=== PATIENT | male | born 1955 | race Caucasian/White ===

== ENCOUNTER 2019-02-13 12:24 | Inpatient (IN) | payer MEDICAID ==
[~2019-02-13] VITALS: Ht 170.2 cm; Wt 92.5 kg
[2019-02-13 12:41] VITALS: BP 132/76
--- NOTE | 2019-02-13 12:52 | NUR ---
64/M BIB SON IN LAW WITH C/O RASH TO LEFT FOREARM X 3 DAYS, FEVER AND COUGH X4 DAYS, STATED PROBLEM WITH SLEEPING. DENIES N/V/D. PATIENT STATES PAIN OF 0/10 AT THIS TIME. PATIENT POSITIONED FOR COMFORT; HOB ELEVATED; BEDRAILS UP X2; BED DOWN. ER MD MADE AWARE OF PT STATUS.
--- NOTE | 2019-02-13 12:52 | NUR ---
PT AMB TO BED1
[2019-02-13] MEDS ORDERED: hydrOXYzine HCL 25 MG TAB PO ONE (13:25)
[2019-02-13] MEDS ORDERED: diphenhydrAMINE 50 MG/ML VIAL IM ONE (13:25)
[2019-02-13] MEDS ORDERED: ALBUTEROL SULFATE/IPRATROPIU 3 ML SOL IH ONE (13:25)
[2019-02-13] MEDS ORDERED: DEXAMETHASONE 10 MG/ML VIAL IM ONE (13:25)
--- NOTE | 2019-02-13 13:25 | NUR ---
Zunilda espinoza in [facility] - 02/13/19 at 1505 by MED1 RT AT BEDSIDE FOR BREATHING TREATMENT.
--- NOTE | 2019-02-13 13:59 | NUR ---
RT AT BEDSIDE FOR BREATHING TREATMENT.
--- NOTE | 2019-02-13 16:25 | NUR ---
CALLED X RAY FOR X RAY RESULT.
[2019-02-13 17:16] LABS: BASOPHILS % (AUTO) 1.1 % (0.0-2.0); EOSINOPHILS % (AUTO) 0.8 % (0.0-4.0); HEMATOCRIT 41.4 % (36-52); HEMOGLOBIN 13.9 g/dL (12.0-18.0); LYMPHOCYTES # (AUTO) 0.5 K/uL (2.0-11.5); LYMPHOCYTES % (AUTO) 12.9 % (20.5-51.1); MEAN CORPUSCULAR HEMOGLOBIN 31 pg (27-31); MEAN CORPUSCULAR HGB CONC 34 g/dL (33-37); MEAN CORPUSCULAR VOLUME 92.3 fL (80-94); MONOCYTES # (AUTO) 0.1 K/uL (0.8-1.0); MONOCYTES % (AUTO) 2.9 % (1.7-9.3); NEUTROPHILS % (AUTO) 82.3 % (42.2-75.2); PLATELET COUNT (AUTO) 296 K/uL (140-450); RED BLOOD CELL COUNT(AUTO) 4.48 MIL/uL (4.20-6.10); RED CELL DISTRIBUTION WIDTH 13.9 % (11.6-13.7); WHITE BLOOD COUNT (AUTO) 3.6 K/uL (4.8-10.8)
[2019-02-13 17:23] LABS: PROTHROMBIN TIME 9.1 secs (10.8-13.4)
--- NOTE | 2019-02-13 17:24 | NUR ---
PT TAKEN TO CT
[2019-02-13 17:29] LABS: ALBUMIN 3.2 g/dL (3.4-5.0); CREATININE 0.9 mg/dL (0.7-1.3); POTASSIUM 4.2 mmol/L (3.5-5.1)
[2019-02-13 17:41] LABS: ANION GAP 13.1 (8-16); CARBON DIOXIDE 24.1 mmol/L (21-32); MAGNESIUM 2.1 mg/dL (1.8-2.4); TOTAL BILIRUBIN 0.3 mg/dL (0.0-1.0)
[2019-02-13 17:42] LABS: URIC ACID 5.6 mg/dL (2.6-7.2)
[2019-02-13] MEDS ORDERED: MORPHINE SULFATE 4 MG/ML SYR IVP PRN (17:45)
[2019-02-13] MEDS ORDERED: ACETAMINOPHEN 325 MG TAB PO PRN (17:45)
[2019-02-13] MEDS ORDERED: DOCUSATE SODIUM 100 MG GELCAP PO PRN (17:45)
[2019-02-13] MEDS ORDERED: LORazepam 2 MG/ML VIAL IM/IVP PRN (17:45)
[2019-02-13] MEDS ORDERED: HYDROcodone/APAP 5/325 MG 1 TAB TAB PO PRN (17:45)
[2019-02-13] MEDS ORDERED: ONDANSETRON 4 MG/2 ML VIAL IM/IVP PRN (17:45)
[2019-02-13] MEDS ORDERED: ZOLPIDEM 5 MG TAB PO PRN (17:45)
[2019-02-13] MEDS ORDERED: LEVOFLOXACIN 500 MG/D5W PREMIX 100 ML IV ONE (18:15)
--- NOTE | 2019-02-13 18:24 | NUR ---
Dr. Lester and Dr. Ruiz evaluating patient at bedside.
[2019-02-13 18:30] LABS: FREE T4 (FREE THYROXINE) 1.2 ng/dL (0.76-1.46); PHOSPHORUS 1.7 mg/dL (2.5-4.9); THYROID STIMULATING HORMONE 1.16 uIU/mL (0.34-3.74)
--- NOTE | 2019-02-13 18:47 | NUR ---
Patient will be admitted to care of DR CHISHOLM. Admited to MS. Will go to room 117A. Belongings list completed. Report to SIMON MACKENZIE.
--- NOTE | 2019-02-13 18:47 | NUR ---
RECEIVED BEDSIDE REPORT FROM ER NURSE. PT STABLE, AWAKE, AND ALERT. FAMILY AT THE BEDSIDE. NO SIGNS OF DISTRESS NOTED. NO REDNESS, SWELLING, OR INFLAMMATION NOTED ON IV SITE. CALL NEFF WITHIN REACH. BED ALARM ON, BED IN LOWEST POSITION. SAFETY MEASURES IN PLACE. PLAN OF CARE REVIEWED.
--- NOTE | 2019-02-13 19:13 | NUR ---
Zunilda espinoza in [facility] - 02/13/19 at 1914 by [facility] Patient will be admitted to care of DR CHISHOLM. Admited to MS. Will go to room 117A. Belongings list completed. Report to SIMON MACKENZIE.
--- NOTE | 2019-02-13 19:20 | NUR ---
ENDORSED PT TO RN CAITLYN FOR CONTINUITY OF CARE. PT STABLE.
--- NOTE | 2019-02-13 19:30 | NUR ---
RECEIVED REPORT FROM DAY SHIFT NURSE FOR CONTINUITY OF CARE. PATIENT IS AWAKE, ALERT, AND COOPERATIVE. PATIENT SPEAK [place], OBTAINED PMH INFORMATION FROM THE FAMILY. RESPIRATION EVEN UNLABORED ON ROOM AIR. NO DISTRESS NOTED. SKIN IS WARM AND DRY. RASH ON THE LEFT HAND NOTED. IV PATENT AND INTACT. LUNGS SOUND CLEAR ON AUSCULTATION. BOWEL SOUNDS PRESENT IN ALL 4 QUADRANTS. LAST BM 02/13/19. MRSA SCREEN DONE. ALL SAFETY MEASURES ARE IN PLACE. PLAN OF CARE WAS DISCUSSED WITH THE PATIENT AND FAMILY. ORIENT PATIENT TO THE ROOM, STAFF, AND CALL LIGHT. BED IS AT LOW POSITION. CALL LIGHT WITHIN REACH AND VERBALIZES ITS USE. WILL CONTINUE TO MONITOR
[2019-02-13] MEDS: NACL 0.9% 1,000 ML IV SCH (19:43)
[2019-02-13 20:00] VITALS: BP 155/90
--- NOTE | 2019-02-13 20:00 | NUR ---
ALL SCHEDULE MEDS WERE GIVEN AND TOLERATED THEM WELL. NO DISTRESS NOTED. WILL CONTINUE TO MONITOR.
--- NOTE | 2019-02-13 21:15 | NUR ---
CHECKED PATIENT. PATIENT LYING IN BED RESPIRATION EVEN UNLABORED ON ROOM AIR. FAMILY AT BEDSIDE. WILL CONTINUE TO MONITOR.
[2019-02-13] MEDS ORDERED: ALBUTEROL SULFATE/IPRATROPIU 3 ML SOL IH PRN (22:10)
[2019-02-13] MEDS ORDERED: guaiFENesin DM 200/20 MG-10 ML 10 ML UDC PO ONE (22:15)
[2019-02-13] MEDS ORDERED: guaiFENesin DM 200/20 MG-10 ML 10 ML UDC PO PRN (22:15)
[2019-02-13] MEDS ORDERED: HYDROCORTISONE 1% CRM 30 GM TUBE TP PRN (22:20)
--- NOTE | 2019-02-13 22:20 | NUR ---
CHECKED PATIENT. PATIENT LYING IN BED WATCHING TV RESPIRATION EVEN UNLABORED ON ROOM AIR. NO DISTRESS NOTED. FAMILY AT BEDSIDE. WILL CONTINUE TO MONITOR.
--- NOTE | 2019-02-13 22:37 | NUR ---
UNABLE TO OBTAIN SPUTUM SAMPLE AT THIS TIME
--- NOTE | 2019-02-13 23:00 | NUR ---
PATIENT COMPLAINED OF DRY COUGH. PRN COUGH MED GIVEN PER ORDER. WILL CONTINUE TO MONITOR.
[2019-02-13] MEDS ORDERED: SODIUM PHOS / POTASSIUM PHOS 1 PKT PDR PO SCH (23:30)
[2019-02-14] VITALS: BP 136/79
--- NOTE | 2019-02-14 | NUR ---
VITALS WERE TAKEN. PATIENT CONDITION STABLE. NO DISTRESS NOTED. WILL CONTINUE TO MONITOR
--- NOTE | 2019-02-14 02:00 | NUR ---
CHECKED PATIENT. PATIENT SLEEPING RESPIRATION EVEN UNLABORED ON ROOM AIR. NO DISTRESS NOTED WILL CONTINUE TO MONITOR.
--- NOTE | 2019-02-14 03:00 | NUR ---
CHECKED PATIENT. PATIENT SLEEPING RESPIRATION EVEN UNLABORED ON ROOM AIR. NO DISTRESS NOTED WILL CONTINUE TO MONITOR.
[2019-02-14] MEDS ORDERED: PIPERACILLIN/TAZOBACTAM 3.375 GM VIAL IV ONE (04:19)
[2019-02-14] MEDS: PIPER/TAZO 3.375GM/D5W PREMIX 50 ML IV SCH ×2 (04:27→12:31)
--- NOTE | 2019-02-14 05:00 | NUR ---
ANTIBIOTIC MED GIVEN PER ODER. NO ASE NOTED. WILL CONTINUE TO MONITOR.
[2019-02-14] MEDS: NACL 0.9% 1,000 ML IV SCH ×2 (05:23→16:08)
[2019-02-14] MEDS: SODIUM PHOS / POTASSIUM PHOS 1 PKT PDR PO SCH ×3 (06:45→16:08)
--- NOTE | 2019-02-14 07:25 | NUR ---
ENDORSED PATIENT TO DAY SHIFT NURSE. PATIENT CONDITION STABLE.
--- NOTE | 2019-02-14 07:30 | NUR ---
RECEIVED PT AAOX4. NO SOB NOTED. NO C/O PAIN AT THIS TIME. IV TO RT HAND PATENT AND INTACT. CHEST DIMINISHED AIR ENTRY TO THE BASES. ABDOMEN SOFT, BOWEL SOUNDS PRESENT. INSTRUCTED PT TO CALL FOR ASSISTANCE, CALL LIGHT WITHIN REACH, VERBALIZED UNDERSTANDING. FAMILY AT THE BEDSIDE.
[2019-02-14 08:00] VITALS: BP_SYST 132; BP_SYST 145; BP_DIAS 73; BP_DIAS 81
[2019-02-14 08:46] LABS: PHOSPHORUS 3.5 mg/dL (2.5-4.9)
[2019-02-14 08:50] LABS: ANION GAP 15.4 (8-16); CARBON DIOXIDE 23.2 mmol/L (21-32); CREATININE 0.8 mg/dL (0.7-1.3); POTASSIUM 4.6 mmol/L (3.5-5.1)
[2019-02-14 08:59] LABS: BASOPHILS % (AUTO) 0.5 % (0.0-2.0); HEMATOCRIT 38.8 % (36-52); LYMPHOCYTES # (AUTO) 0.8 K/uL (2.0-11.5); LYMPHOCYTES % (AUTO) 9.8 % (20.5-51.1); MEAN CORPUSCULAR HEMOGLOBIN 31 pg (27-31); MEAN CORPUSCULAR HGB CONC 34 g/dL (33-37); MEAN CORPUSCULAR VOLUME 92.4 fL (80-94); MONOCYTES # (AUTO) 0.2 K/uL (0.8-1.0); MONOCYTES % (AUTO) 2.7 % (1.7-9.3); NEUTROPHILS # (AUTO) 7.2 K/uL (1.8-7.7); PLATELET COUNT (AUTO) 309 K/uL (140-450); RED CELL DISTRIBUTION WIDTH 13.8 % (11.6-13.7); WHITE BLOOD COUNT (AUTO) 8.2 K/uL (4.8-10.8)
--- NOTE | 2019-02-14 11:39 | NUR ---
LOC AWAKE AND ALERT SON IN LAW AND MOTHER IN LAW AT BEDSIDE EDUCATION PROVIDED TO PATIENT AND FAMILY WITH ACKNOWLEDGEMENT ON INCENTIVE SPIROMETRY AND SPUTUM CULTURE OBTAINMENT TOLERATED INCENTIVE SPIROMETRY THERAPY WELL WITHOUT INCIDENT ENCOURAGED PATIENT AND FAMILY WITH ACKNOWLEDGEMENT FOR PATIENT TO USE INCENTIVE SPIROMETRY EVERY 1-2 HOURS WHILE AWAKE SPUTUM CULTURE SPECIMEN CUP PLACED ON PATIENT TABLE ADVISED PATIENT AND FAMILY MEMBERS THAT WHEN PATIENT SPONTANEOUSLY COUGHS AND IS ABLE TO PRODUCE A SAMPLE TO ADVISE THE RN AND/OR RED LEADER
--- NOTE | 2019-02-14 11:53 | NUR ---
SPUTUM SPECIMEN COLLECTED (EXPECTORATED BY PT) AND SENT TO LAB BY CHRISTINE(RT) FOR SPUTUM CULTURE AND AFB#1.
[2019-02-14] MEDS: LACTOBACILLUS RHAMNOSUS GG 1 EACH CAP PO SCH (12:29)
--- NOTE | 2019-02-14 14:05 | NUR ---
PT AWAKE, TALKING TO FAMILY AT THE BEDSIDE. NO SOB NOTED. NO COMPLAINTS MADE.
[2019-02-14 16:00] VITALS: BP 132/73
--- NOTE | 2019-02-14 19:00 | NUR ---
PT AWAKE, WATCHING TV. NO SOB NOTED. NO SIGNS OF PAIN. SON AT THE BEDSIDE. WILL ENDORSE TO NEXT SHIFT NURSE FOR CONTINUITY OF CARE.
--- NOTE | 2019-02-14 19:10 | NUR ---
RECEIVED PT ON BED, AAOX4, [place] SPEAKING BUT SON AT BEDSIDE ACT INSULATION MECHANIC, NO SOB NOTED AND DENIES PAIN, OCCASIONAL DRY COUGH NOTED, AWARE TO COLLECT SPUTUM SPECIMEN FOR TEST, CONTAINER AT BEDSIDE, MAINTAINED ON AIRBORNE PRECAUTION TO R/O TB, CALL LIGHT WITHIN REACH.
--- NOTE | 2019-02-14 20:27 | NUR ---
ATTEMPTED SPUTUM INDUCTION. PT UNABLE TO PRODUCE. GAVE HHN TX WITH NS. PT STILL UNABLE TO PRODUCE. CUP LEFT WITH PT, PT ADVISED TO KEEP TRYING AND TO CALL IF HE PRODUCES ANYTHING IN THE MEANTIME. RN NOTIFIED.
[2019-02-14] MEDS ORDERED: AZITHROMYCIN 500 MG INJ VIAL IV ONE (20:57)
[2019-02-14] MEDS: OSELTAMIVIR PHOSPHATE 75 MG CAP PO SCH (20:58)
[2019-02-14] MEDS: AZITHROMYCIN 500 MG in DEXTROSE 5% 250 ML IV SCH (20:58)
[2019-02-14] MEDS: ATORVASTATIN 20 MG TAB PO SCH (20:58)
--- NOTE | 2019-02-14 21:20 | NUR ---
PT AWAKE, NO SIGNS OF DISTRESS, DUE MEDS ADMINISTERED, FIRST DOSE OF ZITHROMAX IVPB STARTED, MONITORED CLOSELY FOR REACTION, INFLUENZA SWAB DONE AND SENT TO LAB, ALL NEEDS ATTENDED.
[2019-02-14] MEDS ORDERED: cefTRIAXone 1,000 MG VIAL ONE (22:05)
--- NOTE | 2019-02-14 23:40 | NUR ---
PT SLEEPING, EASILY AROUSABLE, VITAL SIGNS STABLE, NO SOB NOTED, IVF INFUSING WELL, PT STILL UNABLE TO PRODUCE SPUTUM, ENCOURAGE TO TRY, CONTAINER AT BEDSIDE, CONTINUE TO MONITOR CLOSELY.
[2019-02-15] VITALS: BP 115/75
[2019-02-15] MEDS: NACL 0.9% 1,000 ML IV SCH ×4 (01:00→21:00)
--- NOTE | 2019-02-15 02:30 | NUR ---
ROUNDS MADE, NO DISTRESS NOTED, MONITORED CLOSELY.
--- NOTE | 2019-02-15 05:40 | NUR ---
PT SLEEPING, EASILY AROUSABLE, NO SIGNS OF DISTRESS, IVF INFUSING WELL, STILL UNABLE TO PRODUCE SPUTUM, WILL ENDORSE TO AM NURSE, SON AT THE BEDSIDE, MONITORED CLOSELY.
--- NOTE | 2019-02-15 07:15 | NUR ---
PT SLEEPING, NO SIGNS OF DISTRESS, REPORT GIVEN TO AVRIL DUBOSE FOR CONTINUITY OF CARE.
--- NOTE | 2019-02-15 07:16 | NUR ---
RECEIVED REPORT FROM ORTHOPEDIC SURGEON NURSE. PT IN STABLE CONDITION. RESPIRATIONS EVEN AND UNLABORED. IV INTACT AND PATENT. SAFETY MEASURES IN PLACE. BED IN LOW POSITION. CALL LIGHT AT BEDSIDE. WILL CONTINUE TO MONITOR.
[2019-02-15 07:55] LABS: BASOPHILS % (AUTO) 0.7 % (0.0-2.0); EOSINOPHILS # (AUTO) 0.1 K/uL (0-0.4); EOSINOPHILS % (AUTO) 1.3 % (0.0-4.0); HEMATOCRIT 37.4 % (36-52); HEMOGLOBIN 12.7 g/dL (12.0-18.0); LYMPHOCYTES # (AUTO) 1.7 K/uL (2.0-11.5); LYMPHOCYTES % (AUTO) 27.4 % (20.5-51.1); MEAN CORPUSCULAR HEMOGLOBIN 32 pg (27-31); MEAN CORPUSCULAR HGB CONC 34 g/dL (33-37); MEAN CORPUSCULAR VOLUME 92.4 fL (80-94); MONOCYTES # (AUTO) 0.5 K/uL (0.8-1.0); MONOCYTES % (AUTO) 8.3 % (1.7-9.3); NEUTROPHILS # (AUTO) 3.8 K/uL (1.8-7.7); NEUTROPHILS % (AUTO) 62.3 % (42.2-75.2); PLATELET COUNT (AUTO) 290 K/uL (140-450); RED BLOOD CELL COUNT(AUTO) 4.05 MIL/uL (4.20-6.10); RED CELL DISTRIBUTION WIDTH 14.1 % (11.6-13.7); WHITE BLOOD COUNT (AUTO) 6.1 K/uL (4.8-10.8)
[2019-02-15 08:00] VITALS: BP 138/82
[2019-02-15] MEDS ORDERED: MORPHINE SULFATE 2 MG/ML SYR IVP PRN (08:11)
[2019-02-15 08:40] LABS: PHOSPHORUS 2.9 mg/dL (2.5-4.9)
--- NOTE | 2019-02-15 08:41 | NUR ---
PATIENT HAS BEEN SCREENED AND CATEGORIZED MODERATE NUTRITION RISK. PATIENT WILL BE SEEN WITHIN 3-5 DAYS OF ADMISSION. 02/16/[address]
[2019-02-15 08:44] LABS: ANION GAP 13.1 (8-16); CREATININE 0.8 mg/dL (0.7-1.3); POTASSIUM 4.1 mmol/L (3.5-5.1)
[2019-02-15] MEDS: SODIUM CHLORIDE 3% 4 ML SOL INH SCH ×2 (10:48→21:00)
[2019-02-15] MEDS: OSELTAMIVIR PHOSPHATE 75 MG CAP PO SCH ×2 (10:50→22:22)
[2019-02-15] MEDS: LACTOBACILLUS RHAMNOSUS GG 1 EACH CAP PO SCH (10:50)
--- NOTE | 2019-02-15 11:05 | NUR ---
SON IN LAW AT BEDSIDE EDUCATION PROVIDED TO PATIENT AND SON IN LAW ON SPUTUM COLLECTION FOR AFB #2
--- NOTE | 2019-02-15 11:49 | NUR ---
PT LYING IN BED IN STABLE CONDITION. FAMILY AT BEDSIDE. BED IN LOW POSITION. CALL LIGHT AT BEDSIDE. WILL CONTINUE TO MONITOR.
[2019-02-15 13:15] LABS: APPEARANCE,URINE CLEAR (CLEAR); BILIRUBIN,URINE NEGATIVE (NEGATIVE); BLOOD, URINE NEGATIVE (NEGATIVE); COLOR,URINE YELLOW (YELLOW); LEUKOCYTE ESTERASE ,URINE NEGATIVE (NEGATIVE); NITRITE, URINE NEGATIVE (NEGATIVE); PH,URINE 6.5 (5.0-9.0); UGLUCOSE NEGATIVE (NEGATIVE)
[2019-02-15 13:25] LABS: BARBITURATE, URINE NEG. ng/ml (NEG <=200); BENZODIAZEPINE, URINE NEG. ng/mL (NEG <=200); CANNABINOID, URINE NEG. ng/mL (NEG <=50); COCAINE, URINE NEG. ng/mL (NEG <=300); OPIATE, URINE NEG. ng/mL (NEG <=2000); PHENCYCLIDINE SCREEN,URINE NEG. ng/mL (NEG <=25)
[2019-02-15 16:00] VITALS: BP 135/87
[2019-02-15] MEDS: PSYLLIUM 12.2 GM/PKT PO SCH (17:09)
--- NOTE | 2019-02-15 19:31 | NUR ---
GAVE REPORT TO CHEMISTRY PROFESSOR NURSE FOR CONTINUITY OF CARE. PT IN STABLE CONDITION.
--- NOTE | 2019-02-15 19:35 | NUR ---
RECEIVED FROM AM RN IN BED SLEEPING. SON IN LAW WATCHING OVER HIM. CALL LIGHT WITH IN REACH AND CARE PLANS FOR THE NIGHT DISCUSSED WITH SON IN LAW WHO SPEAKS AND UNDERSTANDS [place] WELL. DX. OF PNA WITH PLEURAL EFFUSION. IVF SITE TO RIGHT HAND #18 INTACT AND INFUSING WELL WITH NS AT 100 ML/H. NO COMPLAINTS DONE AT THIS TIME.
[2019-02-15] MEDS: AZITHROMYCIN 500 MG in DEXTROSE 5% 250 ML IV SCH (20:00)
[2019-02-15] MEDS: ATORVASTATIN 20 MG TAB PO SCH (22:22)
--- NOTE | 2019-02-15 22:39 | NUR ---
2100 SODIUM CHLORIDE HHNTX GIVEN BY NEBULIZER. PATIENT HAS CLEAR BREATH SOUNDS AND UN ABLE TO GIVE SAMPLE AT THIS TIME
--- NOTE | 2019-02-15 22:40 | NUR ---
PT. STILL AWAKE AND WATCHING TV. NO COMPLAINTS DONE. ABLE TO USE CALL LIGHT AND PT. WITH SON IN LAW WATCHING OVER HIM. NO COMPLAINTS OF ANY PAIN DONE. BREATHING TREATMENT CONTINUOS.
[2019-02-16] MEDS: NACL 0.9% 1,000 ML IV SCH ×2 (00:55→13:57)
--- NOTE | 2019-02-16 01:33 | NUR ---
PT. AND SON IN LAW SLEEPING AT THIS TIME. NO COMPLAINTS DONE. CALL LIGHT WITH IN REACH. IVF SITE INTACT AND NO INFILTRATION.
[2019-02-16 01:37] VITALS: BP 121/73
--- NOTE | 2019-02-16 03:15 | NUR ---
PT. SON IN LAW AWAKE AT THIS TIME. READING. NO COMPLAINTS DONE.
[2019-02-16] MEDS: SODIUM CHLORIDE 3% 4 ML SOL INH SCH ×4 (05:00→19:14)
--- NOTE | 2019-02-16 06:54 | NUR ---
PT. SLEEPING WELL. NO COMPLAINTS DONE. WILL ENDORSE TO AM RN FOR CONTINUITY OF CARE. A/O X 4. ISOLATION PRECAUTION OBSERVED.
--- NOTE | 2019-02-16 07:15 | NUR ---
RECEIVED REPORT FROM BUILDING SERVICES TECHNICIAN NURSE MOOK FOR CONTINUITY OF CARE. PT IN STABLE CONDITION. RESPIRATIONS EVEN AND UNLABORED. IV INTACT AND PATENT. SAFETY MEASURES IN PLACE. CALL LIGHT AT BEDSIDE. BED IN LOW POSITION. WILL CONTINUE TO MONITOR.
[2019-02-16 08:00] VITALS: BP 113/86
[2019-02-16 08:27] LABS: ANION GAP 12.3 (8-16); BASOPHILS # (AUTO) 0.1 K/uL (0.00-0.22); BASOPHILS % (AUTO) 1.3 % (0.0-2.0); CARBON DIOXIDE 25.8 mmol/L (21-32); CREATININE 0.8 mg/dL (0.7-1.3); EOSINOPHILS # (AUTO) 0.2 K/uL (0-0.4); EOSINOPHILS % (AUTO) 5.1 % (0.0-4.0); HEMATOCRIT 39.6 % (36-52); HEMOGLOBIN 13.3 g/dL (12.0-18.0); LYMPHOCYTES # (AUTO) 1.6 K/uL (2.0-11.5); LYMPHOCYTES % (AUTO) 33.7 % (20.5-51.1); MEAN CORPUSCULAR HEMOGLOBIN 31 pg (27-31); MEAN CORPUSCULAR HGB CONC 34 g/dL (33-37); MEAN CORPUSCULAR VOLUME 92.4 fL (80-94); MONOCYTES # (AUTO) 0.5 K/uL (0.8-1.0); MONOCYTES % (AUTO) 9.5 % (1.7-9.3); NEUTROPHILS # (AUTO) 2.4 K/uL (1.8-7.7); NEUTROPHILS % (AUTO) 50.4 % (42.2-75.2); PLATELET COUNT (AUTO) 312 K/uL (140-450); POTASSIUM 4.1 mmol/L (3.5-5.1); RED BLOOD CELL COUNT(AUTO) 4.29 MIL/uL (4.20-6.10); RED CELL DISTRIBUTION WIDTH 14.2 % (11.6-13.7); WHITE BLOOD COUNT (AUTO) 4.8 K/uL (4.8-10.8)
[2019-02-16] MEDS: LACTOBACILLUS RHAMNOSUS GG 1 EACH CAP PO SCH (08:42)
[2019-02-16] MEDS: OSELTAMIVIR PHOSPHATE 75 MG CAP PO SCH ×2 (08:42→20:55)
[2019-02-16] MEDS: PSYLLIUM 12.2 GM/PKT PO SCH ×2 (08:42→18:38)
[2019-02-16 09:00] LABS: MAGNESIUM 2.1 mg/dL (1.8-2.4); PHOSPHORUS 3.4 mg/dL (2.5-4.9)
--- NOTE | 2019-02-16 11:00 | NUR ---
TOOK SPUTUM SAMPLE TO LAB AT THIS TIME
--- NOTE | 2019-02-16 14:15 | NUR ---
PT LYING IN BED SLEEPING IN STABLE CONDITION. FAMILY AT BEDSIDE. WILL CONTINUE TO MONITOR. BED IN LOW POSITION. CALL LIGHT AT BEDSIDE.
[2019-02-16 16:00] VITALS: BP 117/70
--- NOTE | 2019-02-16 19:22 | NUR ---
RECEIVED BEDSIDE REPORT FROM GRACY MACKENZIE. PT IS AAO X4. DAUGHTER AT BEDSIDE. PT ON AIRBORNE PRECAUTION FOR POSSIBLE TB. INDUCED SPUTUM CULTURE PENDING. IV ON R HAND 18G IVF PER ORDERS. SKIN INTACT PER NURSE. PT IS AMBULATORY. ON ROOM AIR. PLAN OF CARE DISCUSSED WITH PT. SAFETY MEASURES ARE IN PLACE.
--- NOTE | 2019-02-16 19:24 | NUR ---
ATTEMPTED TO COLLECT SPUTUM SAMPLE FROM PT. PT DRY. GAVE 4ML OF HYPERTONIC SALINE VIA HHN. PT STILL UNABLE TO PRODUCE, HAS DRY MANAGER DISCOVERY COUGH. SPECIMEN CUP LEFT WITH PT AND FAMILY WAS ADVISED TO CALL IF PT IS ABLE TO PRODUCE IN THE MEANTIME. WILL ATTEMPT AGAIN AT 0300. RN NOTIFIED.
--- NOTE | 2019-02-16 19:46 | NUR ---
GAVE REPORT TO ANIMAL FEEDER NURSE FOR CONTINUITY OF CARE. PT IN STABLE CONDITION.
[2019-02-16] MEDS: AZITHROMYCIN 500 MG in DEXTROSE 5% 250 ML IV SCH (19:53)
[2019-02-16] MEDS: ATORVASTATIN 20 MG TAB PO SCH (20:55)
--- NOTE | 2019-02-16 20:55 | NUR ---
DUE MEDICATIONS GIVEN PT TOLERATED WELL. RT WAS UNABLE TO COLLECT SPUTUM CULTURE. PT IS AWARE FOR NEED AND VERBALIZED UNDERSTANDING. ALL NEEDS MET AT THIS TIME. SON IS AT BEDSIDE. WILL CONTINUE TO MONITOR.
--- NOTE | 2019-02-16 22:00 | NUR ---
PT IS RESTING COMFORTABLY IN BED. RESPIRATIONS ARE EQUAL AND UNLABORED. CALL LIGHT WITHIN REACH. AND SON IS AT BEDSIDE.
[2019-02-17] VITALS: BP 140/82
--- NOTE | 2019-02-17 00:13 | NUR ---
VITAL SIGNS ARE WITHIN NORMAL LIMITS. ALL NEEDS MET AT THIS TIME. CALL LIGHT WITHIN REACH.
[2019-02-17] MEDS: NACL 0.9% 1,000 ML IV SCH ×3 (02:03→23:12)
--- NOTE | 2019-02-17 02:15 | NUR ---
PT IS SLEEPING COMFORTABLY IN BED. RESPIRATIONS ARE EQUAL AND UNLABORED. SAFETY MEASURES ARE IN PLACE. CALL LIGHT WITHIN REACH. WILL CONTINUE TO MONITOR.
[2019-02-17] MEDS: SODIUM CHLORIDE 3% 4 ML SOL INH SCH ×3 (02:48→21:29)
--- NOTE | 2019-02-17 04:39 | NUR ---
PT IS SLEEPING COMFORTABLY IN BED. RESPIRATION EQUAL AND UNLABORED. SON IS AT BEDSIDE. ALL SAFETY MEASURES ARE IN PLACE. WILL CONTINUE TO MONITOR.
[2019-02-17 06:20] LABS: BASOPHILS # (AUTO) 0.1 K/uL (0.00-0.22); EOSINOPHILS # (AUTO) 0.3 K/uL (0-0.4); EOSINOPHILS % (AUTO) 4.1 % (0.0-4.0); HEMATOCRIT 40.5 % (36-52); HEMOGLOBIN 13.6 g/dL (12.0-18.0); LYMPHOCYTES # (AUTO) 1.8 K/uL (2.0-11.5); LYMPHOCYTES % (AUTO) 28.2 % (20.5-51.1); MEAN CORPUSCULAR HEMOGLOBIN 31 pg (27-31); MEAN CORPUSCULAR HGB CONC 34 g/dL (33-37); MEAN CORPUSCULAR VOLUME 92.6 fL (80-94); MONOCYTES # (AUTO) 0.5 K/uL (0.8-1.0); MONOCYTES % (AUTO) 7.8 % (1.7-9.3); NEUTROPHILS # (AUTO) 3.7 K/uL (1.8-7.7); NEUTROPHILS % (AUTO) 58.9 % (42.2-75.2); PLATELET COUNT (AUTO) 326 K/uL (140-450); RED BLOOD CELL COUNT(AUTO) 4.37 MIL/uL (4.20-6.10); RED CELL DISTRIBUTION WIDTH 13.8 % (11.6-13.7); WHITE BLOOD COUNT (AUTO) 6.3 K/uL (4.8-10.8)
--- NOTE | 2019-02-17 07:28 | NUR ---
GAVE BEDSIDE REPORT TO MICHELL MACKENZIE. PT ENDORSED IN STABLE CONDITION.
--- NOTE | 2019-02-17 07:29 | NUR ---
GOT BEDSIDE REPORT FROM AVRIL HO. PATIENT ON MED SURGE FLOOR AND ON AIRBORNE PRECAUTIONS. PATIENT AAOX4 AND ON ROOM AIR, NO DISTRESS NOTED. SKIN INTACT, RASH ON L FA. IV ON R H 18 G INFUSING NS AT 100, IV ASYMPTOMATIC PATENT AND INTACT. PATIENT CONTINENT AND ABLE TO AMBULATE. BED IN LOW POSITION, CALL LIGHT WITHIN REACH, SIDE RAILS X2 UP. SON AT BEDSIDE
[2019-02-17 07:40] LABS: ANION GAP 10.5 (8-16); CARBON DIOXIDE 25.6 mmol/L (21-32); CREATININE 0.8 mg/dL (0.7-1.3); POTASSIUM 4.1 mmol/L (3.5-5.1)
[2019-02-17 07:54] LABS: PHOSPHORUS 3.6 mg/dL (2.5-4.9)
[2019-02-17 08:00] VITALS: BP 109/54
[2019-02-17] MEDS: PSYLLIUM 12.2 GM/PKT PO SCH ×2 (08:00→16:35)
--- NOTE | 2019-02-17 08:16 | NUR ---
PT UNABLE TO PRODUCE SPUTUM AT THIS TIME
[2019-02-17] MEDS: LACTOBACILLUS RHAMNOSUS GG 1 EACH CAP PO SCH (09:18)
[2019-02-17] MEDS: OSELTAMIVIR PHOSPHATE 75 MG CAP PO SCH ×2 (09:18→21:02)
--- NOTE | 2019-02-17 09:24 | NUR ---
ADMINISTERED SCHEDULED MEDS. PATIENT TOLERATED WELL
--- NOTE | 2019-02-17 11:23 | NUR ---
PATIENT HAD BM. ON ROOM AIR, NO DISTRESS NOTED
--- NOTE | 2019-02-17 13:00 | NUR ---
PATIENT SPEAKING WITH FAMILY AT BEDSIDE. ON ROOM AIR, NO DISTRESS NOTED
--- NOTE | 2019-02-17 13:37 | NUR ---
02/17/19 RD INITIAL ASSESSMENT COMPLETED PLEASE REFER TO NUTRITION ASSESSMENT UNDER CARE ACTIVITY FOR ESTIMATED NUTRITIONAL NEEDS. 1. CONTINUE REGULAR VEGETARIAN DIET TOLERATED 2. RD TO FOLLOW-UP 5-7 DAYS, LOW RISK GEORGE [address]ER[address] RD
[2019-02-17] MEDS ORDERED: LORazepam 2 MG/ML VIAL IM/IVP SCH (14:45)
--- NOTE | 2019-02-17 15:23 | NUR ---
PATIENT SLEEPING, ON ROOM AIR, NO DISTRESS NOTED
--- NOTE | 2019-02-17 15:29 | NUR ---
FOLLOWED UP REQUEST FOR TUBERCULOSIS TREATMENT RECORDS AT [facility] ORDERED BY DR. CHISHOLM'S RESIDENT, SPOKE WITH DAKOTAH FROM [facility], DAKOTAH STATED THAT THEY DO NOT HAVE ANY INFORMATIONS OF THIS PT. WILL NOTIFY DR. CHISHOLM.
[2019-02-17 16:00] VITALS: BP 140/88
--- NOTE | 2019-02-17 16:36 | NUR ---
PATIENT SLEEPING, ON ROOM AIR, NO DISTRESS NOTED
--- NOTE | 2019-02-17 18:22 | NUR ---
PATIENT EATING DINNER. ON ROOM AIR, NO DISTRESS NOTED
--- NOTE | 2019-02-17 19:10 | NUR ---
GAVE BEDSIDE REPORT TO AVRIL HO. PATIENT ENDORSED IN STABLE CONDITION
--- NOTE | 2019-02-17 19:11 | NUR ---
RECEIVED BEDSIDE REPORT FROM MICHELL MACKENZIE. PT IS AAO X4. DAUGHTER AT BEDSIDE. PT ON AIRBORNE PRECAUTION FOR POSSIBLE TB. THIRD INDUCED SPUTUM CULTURE PENDING. IV ON R HAND 18G IVF PER ORDERS. SKIN INTACT PER NURSE. PT IS AMBULATORY. ON ROOM AIR. BED ON LOWEST POSITION. SIDE RAILS UP X 2. PLAN OF CARE DISCUSSED WITH PT. SAFETY MEASURES ARE IN PLACE.
[2019-02-17] MEDS: AZITHROMYCIN 500 MG in DEXTROSE 5% 250 ML IV SCH (19:32)
--- NOTE | 2019-02-17 19:32 | NUR ---
ZITHROMAX NOW INFUSING PER ORDERS. ALL QUESTIONS AND CONCERNS ANSWERED. CALL LIGHT WITHIN REACH. WILL CONTINUE TO MONITOR.
--- NOTE | 2019-02-17 20:48 | NUR ---
PATIENT UNABLE TO PRODUCE SPUTUM AT THIS TIME. INSTRUCTED PATIENT ON THE IMPORTANCE OF THE COLLECTION OF HIS SPUTUM. INSTRUCTED TO COUGH AND PT HAS DRY COUGH. LEFT CUP AT BEDSIDE. ENCOURAGED FAMILY MEMBERS TO CONTINUE REMINDING PT TO COUGH UP SPUTUM.
[2019-02-17] MEDS: ATORVASTATIN 20 MG TAB PO SCH (21:02)
--- NOTE | 2019-02-17 21:02 | NUR ---
DUE MEDICATIONS GIVEN. PT TOLERATED WELL. INFORMED PT ABOUT NEED FOR ANOTHER SPUTUM SAMPLE. PT VERBALIZED UNDERSTANDING. ALL NEEDS MET AT THIS TIME. CALL LIGHT WITHIN REACH. WILL CONTINUE TO MONITOR.
--- NOTE | 2019-02-17 21:29 | NUR ---
PATIENT ADMINISTERED HYPERTONIC SOLUTION. ABLE TO COUGH UP SPUTUM. SAMPLE LABELED AND DROPPED OFF AT LAB.
--- NOTE | 2019-02-17 23:49 | NUR ---
NEW BAG OF IVF NOW INFUSING PER ORDERS. VITAL SIGNS ARE STABLE. LAST SPUTUM COLLECTED BY RT. ALL NEEDS MET AT THIS TIME. CALL LIGHT WITHIN REACH.
[2019-02-18] VITALS: BP 148/92
--- NOTE | 2019-02-18 01:31 | NUR ---
PT IS SLEEPING COMFORTABLY IN BED. RESPIRATIONS ARE EQUAL AND UNLABORED. SON AT BEDSIDE. CALL LIGHT WITHIN REACH. WILL CONTINUE TO MONITOR.
--- NOTE | 2019-02-18 04:12 | NUR ---
PT IS SLEEPING COMFORTABLY IN BED. RESPIRATIONS ARE EQUAL AND UNLABORED. CALL LIGHT WITHIN REACH. WILL CONTINUE TO MONITOR.
[2019-02-18] MEDS: SODIUM CHLORIDE 3% 4 ML SOL INH SCH ×3 (05:00→21:00)
--- NOTE | 2019-02-18 07:20 | NUR ---
BEDSIDE REPORT GIVEN TO DEEPAK RN. PT ENDORSED IN STABLE CONDITION.
--- NOTE | 2019-02-18 07:21 | NUR ---
REPORT RECEIVED FROM SOLAR TECHNICIAN NURSE, PT AWAKE ALERT, OX4, SON AT BEDSIDE TO TRANSLATE, RESP EVEN UNLABORED ON RA, NO COUGHING AT THIS TIME, SKIN WARM DRY COLOR WNL, PT DENIES PAIN OR DISCOMFORT, POC REVIEWED, ALL SAFETY MEASURES IN PLACE, WILL CONTINUE TO MONITOR.
[2019-02-18 08:00] VITALS: BP 132/78
[2019-02-18] MEDS: PSYLLIUM 12.2 GM/PKT PO SCH ×2 (08:00→17:00)
[2019-02-18 08:12] LABS: BASOPHILS # (AUTO) 0.1 K/uL (0.00-0.22); EOSINOPHILS # (AUTO) 0.3 K/uL (0-0.4); EOSINOPHILS % (AUTO) 4.7 % (0.0-4.0); HEMATOCRIT 40.1 % (36-52); HEMOGLOBIN 13.4 g/dL (12.0-18.0); LYMPHOCYTES # (AUTO) 1.3 K/uL (2.0-11.5); LYMPHOCYTES % (AUTO) 22.9 % (20.5-51.1); MEAN CORPUSCULAR HEMOGLOBIN 31 pg (27-31); MEAN CORPUSCULAR HGB CONC 33 g/dL (33-37); MONOCYTES # (AUTO) 0.5 K/uL (0.8-1.0); MONOCYTES % (AUTO) 8.3 % (1.7-9.3); NEUTROPHILS # (AUTO) 3.6 K/uL (1.8-7.7); NEUTROPHILS % (AUTO) 63.1 % (42.2-75.2); PLATELET COUNT (AUTO) 337 K/uL (140-450); RED BLOOD CELL COUNT(AUTO) 4.36 MIL/uL (4.20-6.10); RED CELL DISTRIBUTION WIDTH 13.7 % (11.6-13.7); WHITE BLOOD COUNT (AUTO) 5.8 K/uL (4.8-10.8)
[2019-02-18 08:19] LABS: ANION GAP 13.7 (8-16); CARBON DIOXIDE 24.4 mmol/L (21-32); CREATININE 0.8 mg/dL (0.7-1.3); POTASSIUM 4.1 mmol/L (3.5-5.1)
--- NOTE | 2019-02-18 08:45 | NUR ---
DR CHEN AT BEDSIDE.
[2019-02-18 08:46] LABS: PHOSPHORUS 3.1 mg/dL (2.5-4.9)
[2019-02-18] MEDS: NACL 0.9% 1,000 ML IV SCH ×3 (09:00→20:48)
[2019-02-18] MEDS: OSELTAMIVIR PHOSPHATE 75 MG CAP PO SCH ×2 (09:00→20:48)
[2019-02-18] MEDS: LACTOBACILLUS RHAMNOSUS GG 1 EACH CAP PO SCH (09:00)
--- NOTE | 2019-02-18 11:08 | NUR ---
PT SLEEPING QUIETLY IN NO ACUTE DISTRESS, NO COUGHING, SKIN WARM DRY COLOR WNL, IVF INFUSING WELL, SITE WNL, WILL CONTINUE TO MONITOR.
--- NOTE | 2019-02-18 13:40 | NUR ---
PT SITTING UP EATING, RESP EVEN UNLABORED, DENIES ANY NEEDS, FAMILY AT BEDSIDE.
[2019-02-18 16:00] VITALS: BP 132/78
--- NOTE | 2019-02-18 16:08 | NUR ---
PT WALKING AROUND THE ROOM, WITH STEADY GAIT, FAMILY AT BEDSIDE, PT DENIES SOB, PAIN OR ANY OTHER DISCOMFORT, NO COUGHING OBSERVED, VITALS STABLE, WILL CONTINUE TO MONITOR
--- NOTE | 2019-02-18 19:46 | NUR ---
REPORT GIVEN TO FUR TINTER NURSE, PT IN STABLE CONDITION.
--- NOTE | 2019-02-18 19:47 | NUR ---
RECEIVED REPORT FROM DAY SHIFT RN. PATIENT IN STABLE CONDITION. FAMILY AT BEDSIDE NO SIGNS OF DISTRESS ON RA. BED LOW. CALL LIGHT IN REACH.
[2019-02-18] MEDS: AZITHROMYCIN 500 MG in DEXTROSE 5% 250 ML IV SCH (20:47)
[2019-02-18] MEDS: ATORVASTATIN 20 MG TAB PO SCH (20:48)
--- NOTE | 2019-02-18 20:48 | NUR ---
ADMINISTERED SCHEDULED MEDICATIONS. PATIENT TOLERATED WELL. FAMILY AT BED SIDE. SAFETY PRECAUTIONS IN PLACE WILL CONTINUE TO MONITOR.
--- NOTE | 2019-02-18 21:00 | NUR ---
HYPERTONIC SALINE NOT ADMIN DUE TO ALL SPUTUM SAMPLES BEING OBTAINED
[2019-02-18] MEDS: HYDROCORTISONE 1% CRM 30 GM TUBE TP PRN (22:38)
--- NOTE | 2019-02-18 23:17 | NUR ---
ADMINISTERED PRN HYDROCORTISONE CREAM TO LEFT ARM. PATIENT RESTING IN BED. NO SIGNS OF DISTRESS ON RA. WILL CONTINUE TO MONITOR.
[2019-02-19] VITALS: BP 138/76
--- NOTE | 2019-02-19 00:30 | NUR ---
PATIENT SLEEPING. VITALS STABLE. SAFETY PRECAUTIONS IN PLACE. WILL CONTINUE TO MONITOR.
--- NOTE | 2019-02-19 03:07 | NUR ---
PATIENT STILL SLEEPING. NO SIGNS OF DISTRESS. WILL CONTINUE TO MONITOR.
--- NOTE | 2019-02-19 07:20 | NUR ---
GAVE BEDSIDE REPORT TO DAY SHIFT RN, ENDORSED PATIENT FOR CONTINUITY OF CARE. PATIENT STABLE AND FAMILY AT BEDSIDE. SAFETY PRECAUTIONS IN PLACE.
--- NOTE | 2019-02-19 07:22 | NUR ---
RECEIVED BEDSIDE REPORT FROM GALLERY MANAGER NURSE FOR CONTINUITY OF CARE. PATIENT IS AOX4, SPEAKING [place] ONLY. ABLE TO MAKE NEEDS KNOWN AND FOLLOWS COMMAND. DENIES PAIN AND SOB. RESPIRATION EVEN AND UNLABORED. ON RA. NO SIGNS OF DISTRESS NOTED. FAMILY MEMBER JOAN IS AT BEDSIDE. OLINDA IS WEARING PPE WHILE SITTING BESIDE PATIENT. IV ON R HAND 18G, PATENT AND INTACT, INFUSING PER MD ORDER. LFA SKIN RASH NOTED, OTHERWISE SKIN CLEAN AND DRY. PATIENT IS ABLE TO AMBULATE AND CONTINENT. DISCUSSED PLAN OF CARE WITH PATIENT AND FAMILY MEMBER JOAN AND BOTH VERBALIZED UNDERSTANDING. AIRBORNE PRECAUTION INITIALED AND SIGN POSTED. INSTRUCTED PATIENT TO USE THE CALL LIGHT FOR ANY ASSISTANCE AND PATIENT WAS AWARE. BED IN LOW POSITION AND CALL LIGHT WITHIN REACH.
[2019-02-19 08:00] VITALS: BP 134/91
[2019-02-19 08:15] LABS: ANION GAP 10.6 (8-16); CARBON DIOXIDE 25.9 mmol/L (21-32); CREATININE 0.8 mg/dL (0.7-1.3); POTASSIUM 4.5 mmol/L (3.5-5.1)
[2019-02-19 08:27] LABS: PHOSPHORUS 3.1 mg/dL (2.5-4.9)
[2019-02-19] MEDS: OSELTAMIVIR PHOSPHATE 75 MG CAP PO SCH ×2 (08:30→20:05)
[2019-02-19] MEDS: PSYLLIUM 12.2 GM/PKT PO SCH ×2 (08:31→17:11)
[2019-02-19] MEDS: LACTOBACILLUS RHAMNOSUS GG 1 EACH CAP PO SCH (08:31)
--- NOTE | 2019-02-19 08:38 | NUR ---
ADMINISTERED MEDS PER MD ORDER, PATIENT TOLERATED WELL. EDUCATED PATIENT ON THE MEDS AND SIDE EFFECTS. FAMILY MEMBER MONICA IS AT BEDSIDE. NO SIGNS OF DISTRESS NOTED. INSTRUCTED PATIENT TO USE THE CALL LIGHT FOR ANY ASSISTANCE AND PATIENT WAS AWARE.
[2019-02-19 08:44] LABS: BASOPHILS # (AUTO) 0.1 K/uL (0.00-0.22); BASOPHILS % (AUTO) 1.1 % (0.0-2.0); EOSINOPHILS # (AUTO) 0.2 K/uL (0-0.4); EOSINOPHILS % (AUTO) 4.7 % (0.0-4.0); HEMATOCRIT 40.8 % (36-52); HEMOGLOBIN 13.8 g/dL (12.0-18.0); LYMPHOCYTES # (AUTO) 1.3 K/uL (2.0-11.5); LYMPHOCYTES % (AUTO) 26.8 % (20.5-51.1); MEAN CORPUSCULAR HEMOGLOBIN 31 pg (27-31); MEAN CORPUSCULAR HGB CONC 34 g/dL (33-37); MEAN CORPUSCULAR VOLUME 91.8 fL (80-94); MONOCYTES # (AUTO) 0.5 K/uL (0.8-1.0); MONOCYTES % (AUTO) 9.1 % (1.7-9.3); NEUTROPHILS # (AUTO) 2.9 K/uL (1.8-7.7); NEUTROPHILS % (AUTO) 58.3 % (42.2-75.2); PLATELET COUNT (AUTO) 347 K/uL (140-450); RED BLOOD CELL COUNT(AUTO) 4.44 MIL/uL (4.20-6.10)
[2019-02-19] MEDS ORDERED: METPCK PO (09:10)
[2019-02-19] MEDS ORDERED: ATOR20TA40 PO (09:10)
[2019-02-19] MEDS ORDERED: DOCU-299 PO (09:10)
--- NOTE | 2019-02-19 09:35 | NUR ---
PATIENT IS RESTING ON BED AT THIS TIME. DENIES PAIN AND SOB. NO SIGNS OF DISTRESS NOTED. FAMILY MEMBER MONICA IS AT BEDSIDE.
--- NOTE | 2019-02-19 11:29 | NUR ---
PATIENT IS SITTING UP ON BED AND TALKING TO FAMILY MEMBER MONICA AT BEDSIDE. DENIES PAIN AND SOB. NO SIGNS OF DISTRESS NOTED.
[2019-02-19 11:47] LABS: CHOL/HDL RATIO 3.5 (1-4.5)
--- NOTE | 2019-02-19 13:41 | NUR ---
PATIENT IS SITTING UP ON BED AND TALKING TO DAUGHTER TEJI AT BEDSIDE. DENIES PAIN AND SOB. NO SIGNS OF DISTRESS NOTED. INSTRUCTED TEJI TO WEAR PPE AT ALL TIME IN PATIENT ROOM AND TEJI VERBALIZED UNDERSTANDING.
[2019-02-19] MEDS: NACL 0.9% 1,000 ML IV SCH ×2 (15:36→20:05)
--- NOTE | 2019-02-19 15:37 | NUR ---
PATIENT IS AWAKE AND WATCHING TV ON BED. DENIES PAIN AND SOB. NO SIGNS OF DISTRESS NOTED. DAUGHTER ARMAAN IS AT BEDSIDE.
[2019-02-19 16:00] VITALS: BP 135/82
--- NOTE | 2019-02-19 17:21 | NUR ---
Texted and called [facility] regarding afb (-)x3, and Dr Gaviria and Dr Martinez cleared pt for discharged. Asked Cristal regarding [facility] nofication and clearence for discharged. Wait for Cristal to text or call back
--- NOTE | 2019-02-19 17:25 | NUR ---
PATIENT IS RESTING ON BED AT THIS TIME. DENIES PAIN AND SOB. NO SIGNS OF DISTRESS NOTED. DAUGHTER ARMAAN IS AT BEDSIDE. SAFETY MEASURES IN PLACE.
--- NOTE | 2019-02-19 18:36 | NUR ---
Cristal called back. Cristal wanted to know who are the family members that patient lives with; went to patient room and asked patient and , stated that patient lives with 7 month baby and a lady. Told Cristal, and Cristal stated that it is very dangerous for the baby 7 month and the lady. Cristal stated to better hold patient until [facility] notified and cleared for discharged, which is Friday. Talked and explained the situation to patient, patient is agree to stay until [facility] notified and cleared. Notified Dr Medina also regarding the conversation with Cristal and patient
--- NOTE | 2019-02-19 19:25 | NUR ---
Called [facility] [phone] Deana Reynaga regarding discharging TB patient alejo. Deana stated that she will conduct interview only and she will not fax any paperwork. Deana asked: 1. Name of the patient, gender, age, date of 2. AFB test; told her that patient has negative AFB x3, and cleared by resident MD Dr Burns and Dr Murphy for discharge 3. TB meds; told her that patient does not have any TB meds in the hospital, patient only has rocephin, zithromax, tamiflu 4. With whom patient lives with at home; told her that according to the , patient lives with 7 month old baby and a lady Deana stated that she will talk to the TB Controller to discuss the case because there are 7 months old baby and a lady who patient lives with. Deana stated that she will call back for follow up
--- NOTE | 2019-02-19 19:27 | NUR ---
ENDORSED PATIENT AT BEDSIDE TO SUSTAINABILITY ANALYST FOR CONTINUITY OF CARE. PATIENT IS IN A STABLE CONDITION.
--- NOTE | 2019-02-19 19:28 | NUR ---
RECEIVED REPORT FROM DAY SHIFT RN. PATIENT IN STABLE CONDITION. SAFETY PRECAUTIONS IN PLACE.
[2019-02-19] MEDS: ATORVASTATIN 20 MG TAB PO SCH (20:04)
[2019-02-19] MEDS: AZITHROMYCIN 500 MG in DEXTROSE 5% 250 ML IV SCH (20:04)
--- NOTE | 2019-02-19 20:04 | NUR ---
ADMINISTERED SCHEDULED MEDICATIONS. PATIENT TOLERATED WELL. FAMILY AT BEDSIDE. NO SIGNS OF DISTRESS ON RA. WILL CONTINUE TO MONITOR.
--- NOTE | 2019-02-19 21:14 | NUR ---
Deana from [facility] called back to follow up. She has a question: "Is patient will be discharged with TB medications?". Told Deana that I will ask Dr Medina the Resident MD, and Deana wanted to speak with Dr Medina. Will let Dr Medina know
--- NOTE | 2019-02-19 21:46 | NUR ---
Speak with Dr Medina, he stated that he will follow up with the morning resident. Called Deana and let her know that the resident Dr Medina will discuss with other resident in the morning and the morning resident will call [facility]
[2019-02-19] MEDS: HYDROCORTISONE 1% CRM 30 GM TUBE TP PRN (22:22)
--- NOTE | 2019-02-19 22:25 | NUR ---
PATIENT RESTING, SON AT BEDSIDE. NO SIGNS OF DISTRESS. WILL CONTINUE TO MONITOR.
--- NOTE | 2019-02-19 22:50 | NUR ---
PATIENT ON ROOM AIR, PULSE OX SAT 100%. FAMILY AT BEDSIDE. PATIENT DENIES SOB. PRN BREATHING TREATMENT NOT INDICATED AT THIS TIME. NO RESPIRATORY DISTRESS NOTED AT THIS TIME. WILL CONTINUE TO MONITOR.
[2019-02-20] VITALS: BP 146/87
--- NOTE | 2019-02-20 00:40 | NUR ---
PATIENT RESTING. VITALS STABLE. SAFETY PRECAUTIONS IN PLACE. WILL CONTINUE TO MONITOR.
--- NOTE | 2019-02-20 03:10 | NUR ---
PATIENT SLEEPING. NO SIGNS OF DISTRESS ON RA.
--- NOTE | 2019-02-20 05:50 | NUR ---
PATIENT SLEEPING. NO SIGNS OF DISTRESS ON RA.
--- NOTE | 2019-02-20 07:20 | NUR ---
GAVE BEDSIDE REPORT TO DAY SHIFT RN. PATIENT STABLE. ENDORSING FOR CONTINUITY OF CARE.
--- NOTE | 2019-02-20 07:22 | NUR ---
RECEIVED BEDSIDE REPORT FROM ESTERS AND EMULSIFIERS SUPERVISOR NURSE FOR CONTINUITY OF CARE. PATIENT IS AOX4, SPEAKING [place] ONLY. ABLE TO MAKE NEEDS KNOWN AND FOLLOWS COMMAND. DENIES PAIN AND SOB. RESPIRATION EVEN AND UNLABORED. ON RA. NO SIGNS OF DISTRESS NOTED. UNRULY FRANCO IS AT BEDSIDE. OLINDA IS WEARING PPE WHILE SITTING BESIDE PATIENT. IV ON R HAND 18G, PATENT AND INTACT, INFUSING PER MD ORDER. LFA SKIN RASH NOTED, OTHERWISE SKIN CLEAN AND DRY. PATIENT IS ABLE TO AMBULATE AND CONTINENT. DISCUSSED PLAN OF CARE WITH PATIENT AND UNRULY FRANCO AND BOTH VERBALIZED UNDERSTANDING. AIRBORNE PRECAUTION INITIALED AND SIGN POSTED. INSTRUCTED PATIENT TO USE THE CALL LIGHT FOR ANY ASSISTANCE AND PATIENT WAS AWARE. BED IN LOW POSITION AND CALL LIGHT WITHIN REACH.
[2019-02-20 08:00] VITALS: BP 115/75
[2019-02-20] MEDS: LACTOBACILLUS RHAMNOSUS GG 1 EACH CAP PO SCH (08:16)
[2019-02-20] MEDS: PSYLLIUM 12.2 GM/PKT PO SCH (08:17)
--- NOTE | 2019-02-20 08:20 | NUR ---
ADMINISTERED MEDS PER MD ORDER, PATIENT TOLERATED WELL. NO SIGNS OF DISTRESS NOTED. UNRULY ANDERSON IS AT BEDSIDE. BED IN LOW POSITION AND CALL LIGHT WITHIN REACH.
--- NOTE | 2019-02-20 09:36 | NUR ---
PATIENT IS RESTING ON BED AT THIS TIME. NO SIGNS OF DISTRESS NOTED. SON MONICA IS AT BEDSIDE. INSTRUCTED PATIENT AND SON MONICA TO USE THE CALL LIGHT FOR ANY ASSISTANCE AND BOTH VERBALIZED UNDERSTANDING.
--- NOTE | 2019-02-20 11:15 | NUR ---
PATIENT IS RESTING ON BED. NO SIGNS OF DISTRESS NOTED. SON MONICA IS AT BEDSIDE. INSTRUCTED PATIENT TO USE THE CALL LIGHT FOR ANY ASSISTANCE AND PATIENT WAS AWARE.
[2019-02-20] MEDS: NACL 0.9% 1,000 ML IV SCH (12:10)
--- NOTE | 2019-02-20 13:00 | NUR ---
FAXED H&P ,D/C SUMMARY ,THE 3 AF[employer] TEST RESULT AND MEDICATION LIST TO [phone] FROM [facility] CALLED BACK AND SPOKE WITH PRIMARY NURSE WINIFRED AND GAVE VERBAL ORDER THAT IT IS OK TO D/C PATIENT HOME.
--- NOTE | 2019-02-20 13:24 | NUR ---
PATIENT IS SITTING UP ON A CHAIR. DENIES PAIN AND SOB. NO SIGNS OF DISTRESS NOTED. DAUGHTER IN LAW ARMAAN IS AT BEDSIDE. INSTRUCTED PATIENT TO USE THE CALL LIGHT FOR ANY ASSISTANCE AND PATIENT WAS AWARE.
--- NOTE | 2019-02-20 14:15 | NUR ---
RECEIVED CALL FROM BRUNA BARRON THE TOOL FILER HAND OFFICER FROM [facility] OF [facility]. PER BRUNA, SHE IS CALLING TO GIVE VERBAL APPROVAL TO CLEAR THAT PATIENT IS NEGATIVE FOR TB AND HOSPITAL IS ALLOWED TO DISCHARGE AMPARO NAVARRO TODAY. IF ANY QUESTION OR CONCERNS, SHE CAN BE REACH AT [phone]. NOTIFIED ABA THERAPIST ALEM ON ABOVE INFORMATION.
[2019-02-20 16:00] VITALS: BP 120/68
[2019-02-20] MEDS ORDERED: PNEUMOCOCCAL VACCINE 23 MCG/0.5 ML VIAL IMVAC SCH (16:10)
--- NOTE | 2019-02-20 16:45 | NUR ---
DISCHARGE INSTRUCTION PROVIDED TO PATIENT AND FAMILY MEMBERS UNRULY ANDERSON, DAUGHTER IN LAW ARMAAN, AND DAUGHTER MADELYN. EDUCATED PATIENT AND FAMILY MEMBERS ON FOLLOW UP WITH MD, DISEASE MANAGEMENT, SIGNS AND SYMPTOMS, MEDICATIONS REGIMEN, MEDICATION SIDE EFFECTS, DIET REGIMEN, AND GO TO THE NEAREST EMERGENCY ROOM IF EXPERIENCING SWELLING, FEVER, DIZZINESS, SHORTNESS OF BREATH, PAIN AND OR WORSEN SYMPTOMS IMMEDIATELY. PATIENT AND FAMILY MEMBERS VERBALIZED UNDERSTANDING. PNA GIVEN TO PATIENT AND EDUCATION PROVIDED. ANSWERED ALL PATIENT AND FAMILY MEMBERS' QUESTIONS.
--- NOTE | 2019-02-20 17:00 | NUR ---
REMOVED ALL ARM BANDS AND D/C IV. IV CANNULA INTACT, AND NO BLEEDING AT IV SITE. PATIENT TOOK ALL HIS BELONGINGS. ESCORTED PATIENT TO THE LOBBY WITH THE WHEEL CHAIR. PATIENT IS DISCHARGE AT THIS TIME. PATIENT IS IN STABLE CONDITION.
== END 2019-02-20 17:00 | disposition home or self-care (01) | DRG 177 ==
LOC: MED 12:24 → MTU 17:44
PROVIDERS: ADMIT General Practice; ATTEND General Practice
PROC: 3E0234Z Introduction of Serum, Toxoid and Vaccine into Muscle, Percutaneous Approach (ICD-10-PCS; principal; 2019-02-20)
DX: J69.0 Pneumonitis due to inhalation of food and vomit (principal); J96.01 Acute respiratory failure with hypoxia; E44.0 Moderate protein-calorie malnutrition; A15.9 Respiratory tuberculosis unspecified; E83.39 Other disorders of phosphorus metabolism; Z68.32 Body mass index [BMI] 32.0-32.9, adult; D72.819 Decreased white blood cell count, unspecified; E78.2 Mixed hyperlipidemia; J40 Bronchitis, not specified as acute or chronic; E66.9 Obesity, unspecified; R73.03 Prediabetes; L25.9 Unspecified contact dermatitis, unspecified cause; Z86.11 Personal history of tuberculosis; Z71.3 Dietary counseling and surveillance; Z23 Encounter for immunization
CPT/HCPCS: 36415; 71045; 71046; 71250; 80048; 80053; 80305; 81003; 82150; 83036; 83690; 83735; 83880; 84100; 84439; 84443; 84484; 84550; 85025; 85379; 85610; 87070; 87081; 87116; 87190; 87205; 87206; 87804; 89220; 90732; 93005; 94640; 96372; 99285; J0456; J0696; J1100; J1200; J1956; J2543; J7030; J7060; J7620; Q0092

== ENCOUNTER 2019-09-05 10:21 | Emergency (ER) | payer MEDICAID, OTHER ==
[~2019-09-05] VITALS: Ht 172.7 cm; Wt 94.8 kg
[~2019-09-05 10:21] MED LIST: ATOR20TA40 PO; DOCU-299 PO; METPCK PO
[2019-09-05 10:28] VITALS: BP 137/76
--- NOTE | 2019-09-05 10:36 | NUR ---
PT TAKEN TO BED 8 IN WHEELCHAIR
--- NOTE | 2019-09-05 10:49 | NUR ---
Patient being evaluated by DR. LUDWIG at bedside.
--- NOTE | 2019-09-05 10:50 | NUR ---
PT PRESENTS TO THE ED WITH C/O L THIGH PAIN WHEN WALKING X 1 DAY. PT DENIES INJURY TO LEG, NO REDNESS OR DEFORMITIES NOTED. PT STATES PAIN IS SHARP WHEN APPLYING PRESSURE TO LEG. PT DENIES CP, SOB, FEVER, COUGH, N/V/D AT THIS TIME. PT DENIES TAKING MEDICATION AT HOME. DAUGHTER IN LAW AT BEDSIDE. PT POSITINED FOR COMFORT. ER MD TO SEE PT. ANTOINE HX: HIGH CHOLESTEROL RX: SIMVASTATIN
[2019-09-05] MEDS ORDERED: KETOROLAC 60 MG/2 ML VIAL IM ONE (10:55)
--- NOTE | 2019-09-05 11:03 | NUR ---
X RAY AT BEDSIDE.
[2019-09-05 11:51] VITALS: BP 130/80
== END 2019-09-05 11:51 | disposition home or self-care (01) ==
LOC: MED 10:21
DX: S76.912A Strain of unspecified muscles, fascia and tendons at thigh level, left thigh, initial encounter (principal); Z79.899 Other long term (current) drug therapy; X58.XXXA Exposure to other specified factors, initial encounter; Y93.89 Activity, other specified; Y92.89 Other specified places as the place of occurrence of the external cause; Y99.8 Other external cause status
CPT/HCPCS: 73552; 96372; 99283; J1885

== ENCOUNTER 2020-03-22 15:44 | Emergency (ER) | payer OTHER ==
[~2020-03-22] VITALS: Ht 172.7 cm; Wt 98.0 kg
[2020-03-22 16:02] VITALS: BP 143/101
[2020-03-22 17:09] VITALS: BP 147/90
== END 2020-03-22 17:00 | disposition home or self-care (01) ==
LOC: MED 15:44
DX: G40.209 Localization-related (focal) (partial) symptomatic epilepsy and epileptic syndromes with complex partial seizures, not intractable, without status epilepticus (principal); R51 Headache; Z79.899 Other long term (current) drug therapy
CPT/HCPCS: 70450; 99284

== ENCOUNTER 2022-09-28 09:42 | Emergency (ER) | payer OTHER ==
[~2022-09-28] VITALS: Ht 167.6 cm; Wt 97.1 kg
[2022-09-28 09:56] VITALS: BP 166/97
--- NOTE | 2022-09-28 10:10 | NUR ---
67 Y/O MALE BIB DAUGHTER C/O WEAKNESS X5 MONTHS, PT STATES THAT HE "FEELS THOUGH HE NEEDS TO SLEEP MORE", DENIES ANY DIZZINESS, PAIN NKA PMH: DENIES
[2022-09-28 11:35] LABS: BASOPHILS # (AUTO) 0.1 K/uL (0.00-0.22); BASOPHILS % (AUTO) 1.4 % (0.0-2.0); EOSINOPHILS # (AUTO) 0.4 K/uL (0-0.4); EOSINOPHILS % (AUTO) 7.4 % (0.0-4.0); HEMATOCRIT 43.7 % (36-52); HEMOGLOBIN 14.7 g/dL (12.0-18.0); LYMPHOCYTES # (AUTO) 1.7 K/uL (2.0-11.5); LYMPHOCYTES % (AUTO) 32.3 % (20.5-51.1); MEAN CORPUSCULAR HEMOGLOBIN 33 pg (27-31); MEAN CORPUSCULAR HGB CONC 34 g/dL (33-37); MEAN CORPUSCULAR VOLUME 96.5 fL (80-94); MONOCYTES # (AUTO) 0.6 K/uL (0.8-1.0); MONOCYTES % (AUTO) 11.5 % (1.7-9.3); NEUTROPHILS # (AUTO) 2.5 K/uL (1.8-7.7); NEUTROPHILS % (AUTO) 47.4 % (42.2-75.2); PLATELET COUNT (AUTO) 242 K/uL (140-450); RED BLOOD CELL COUNT(AUTO) 4.53 MIL/uL (4.20-6.10); RED CELL DISTRIBUTION WIDTH 14.2 % (11.6-13.7); WHITE BLOOD COUNT (AUTO) 5.2 K/uL (4.8-10.8)
[2022-09-28 11:59] LABS: ALBUMIN 3.6 g/dL (3.4-5.0); ANION GAP 11.3 (8-16); CARBON DIOXIDE 28.4 mmol/L (21-32); CREATININE 0.9 mg/dL (0.6-1.3); POTASSIUM 3.7 mmol/L (3.5-5.1); TOTAL BILIRUBIN 0.4 mg/dL (0.0-1.0)
[2022-09-28] MEDS ORDERED: TAM75 PO (13:58)
[2022-09-28] MEDS ORDERED: ACET-10509 PO (13:59)
[2022-09-28 14:10] VITALS: BP 156/92
== END 2022-09-28 14:10 | disposition home or self-care (01) ==
LOC: MED 09:42
DX: B34.9 Viral infection, unspecified (principal); Z20.822 Contact with and (suspected) exposure to COVID-19
CPT/HCPCS: 36415; 80053; 83880; 84443; 85025; 93005; 99284

== ENCOUNTER 2023-04-13 14:18 | Emergency (ER) | payer OTHER ==
[~2023-04-13] VITALS: Ht 175.3 cm; Wt 100.2 kg
[~2023-04-13 14:18] MED LIST changes: +ACET-10509 PO; +TAM75 PO
[2023-04-13 14:19] VITALS: BP 179/99
--- NOTE | 2023-04-13 14:45 | NUR ---
here for left hip pain 06/05, no trauma
[2023-04-13] MEDS ORDERED: KETOROLAC 30 MG/ML VIAL IM ONE (14:55)
[2023-04-13] MEDS ORDERED: LID5T TP (15:06)
[2023-04-13] MEDS ORDERED: CYCL-711 PO (15:06)
[2023-04-13] MEDS ORDERED: NAPR-54 PO (15:06)
--- NOTE | 2023-04-13 15:13 | NUR ---
medicated for hip pain as ordered
--- NOTE | 2023-04-13 15:25 | NUR ---
Patient discharged with v/s stable. Written and verbal after care instructions given and explained. Patient alert, oriented and verbalized understanding of instructions. Ambulatory with steady gait. All questions addressed prior to discharge. ID band removed. Patient advised to follow up with PMD. Rx of FLEXERIL, TYLENOL, LIDODERM PATCH given. Patient educated on indication of medication including possible reaction and side effects. Opportunity to ask questions provided and answered.
== END 2023-04-13 15:25 | disposition home or self-care (01) ==
LOC: MED 14:18
DX: M54.32 Sciatica, left side (principal); Z79.899 Other long term (current) drug therapy
CPT/HCPCS: 96372; 99283; J1885

== ENCOUNTER 2024-01-06 09:55 | Emergency (ER) | payer OTHER ==
[~2024-01-06] VITALS: Ht 165.1 cm; Wt 74.8 kg
[~2024-01-06 09:55] MED LIST changes: +CYCL-711 PO; +GABA100C PO; +LID5T TP; +NAPR-54 PO
[2024-01-06 10:27] VITALS: BP 130/93; PULSE 84; RESP 18; TEMP 98.7; O2SAT 96
[2024-01-06] MEDS ORDERED: PROM118S5 PO (12:25)
[2024-01-06] MEDS ORDERED: NAPR-1704 PO (12:25)
[2024-01-06 12:32] VITALS: BP 135/82; PULSE 74; RESP 16; TEMP 98.7; O2SAT 99
== END 2024-01-06 12:32 | disposition home or self-care (01) ==
LOC: MED 09:55
DX: B34.9 Viral infection, unspecified (principal); R06.02 Shortness of breath; E11.9 Type 2 diabetes mellitus without complications; Z79.899 Other long term (current) drug therapy; Z79.4 Long term (current) use of insulin
CPT/HCPCS: 71045; 99283